=== PATIENT | female | born 1960 | race Two or more races ===

== ENCOUNTER 2016-10-25 10:01 | Emergency (ER) | payer MEDICAID, MEDICARE ==
[~2016-10-25] VITALS: Ht 170.2 cm; Wt 136.3 kg
[~2016-10-25 10:01] MED LIST: GABA300C10 PO; HYDR-3144 PO; HYDROCHLOR PO; IBUP200C8 PO; METH750T2 PO; NAPROXEN PO; POTASSIUM PO; SENN-66 PO
[2016-10-25 10:03] VITALS: BP 129/84
[2016-10-25] MEDS ORDERED: KETOROLAC 30 MG/1 ML IM ONE (10:30)
[2016-10-25] MEDS ORDERED: KETOROLAC 30 MG/1 ML ONE (10:43)
== END 2016-10-25 12:18 | disposition home or self-care (01) ==
LOC: ED 12:12
DX: S39.012A Strain of muscle, fascia and tendon of lower back, initial encounter (principal); S80.02XA Contusion of left knee, initial encounter; S80.01XA Contusion of right knee, initial encounter; W18.2XXA Fall in (into) shower or empty bathtub, initial encounter; Y93.89 Activity, other specified; Y92.89 Other specified places as the place of occurrence of the external cause; Y99.8 Other external cause status
CPT/HCPCS: 72110; 73564; 96372; 99284; J1885

== ENCOUNTER 2016-12-07 15:40 | Emergency (ER) | payer MEDICARE ==
[~2016-12-07] VITALS: Ht 170.2 cm; Wt 130.0 kg
[2016-12-07] MEDS ORDERED: SODIUM CHLORIDE FLUSH 10ML SYR IVF ONE (16:30)
[2016-12-07] MEDS ORDERED: SODIUM CHLORIDE 0.9% 1,000ML IVBOLUS ONE (16:30)
[2016-12-07 16:53] LABS: RAPID INFLUENZA A Negative (Negative); RAPID INFLUENZA B Negative (Negative)
[2016-12-07 17:04] VITALS: BP 140/85
== END 2016-12-07 18:28 | disposition home or self-care (01) ==
LOC: ED 15:58
DX: J20.8 Acute bronchitis due to other specified organisms (principal); B96.89 Other specified bacterial agents as the cause of diseases classified elsewhere; F17.200 Nicotine dependence, unspecified, uncomplicated
CPT/HCPCS: 71020; 87400; 93005; 96360; 99285; J7030